=== PATIENT | male | born 1950 | race African-American/Black ===

== ENCOUNTER 2017-01-13 11:58 | Outpatient (CLI) | payer MEDICARE ==
--- OUTSIDE RECORDS SUMMARY | 2017-01-13 12:01 | XMS | Clinical Summary ---
:1950 Author Organization [facility] Address [address] [place] [address] Phone Care Team Providers Name Role Phone , Primary Care Provider Unavailable Allergies Not on File Current Medications Not on file Active Problems Not on file Social History Tobacco Use Types Packs/Day Years Used Date Never Assessed Sex Assigned at Date Recorded Not on file Last Filed Vital Signs Not on file Plan of Treatment Not on file Results Not on filefrom Last 3 Months
--- NOTE | 2017-01-13 14:21 | CT ---
CT STONE PROTOCOL: Date: 01/13/17 HISTORY: Abdominal pain. FINDINGS: Comparison made to the contrast enhanced study of 01/27/16. Absence of oral and IV contrast reduces the sensitivity of exam, particularly for evaluation of elisabeth d organs and bowel. There is a 15.0 mm nodule at the right lung base, new since the last study. No free air or free flui d is seen in the abdomen or pelvis. Changes of cholecystectomy are again noted. Changes of cirrhosis of the liver, splenomegaly, mesenteric and retroperitoneal lymphadenopathy, ext ra and intrahepatic biliary ductal dilatation, and umbilical hernia are again noted. No calculi are seen in the kidneys, ureters, or the urinary bladder. No hydroureteronephrosis is not ed on either side. The prostate is enlarged. There is fecal material in the colon. A normal appearing appendix is present. The small bowel loops are not abnormally dilated. There are vascular calcifications without evidence of aneurysmal dilatat ion of the abdominal aorta. There are degenerative changes in the spine. IMPRESSION: 1. No CT evidence of urinary tract calculi or obstruction. 2. Cirrhosis of the liver. 3. Splenomegaly. 4. Abdominal lymphadenopathy. 5. Status post cholecystectomy with stable intra and extrahepatic biliary ductal dilatation. 6. Umbilical hernia. 7. Prostatic enlargement. 8. New right basilar 15.0 mm lung nodule. A dedicated CT scan of the chest is recommended after a c ourse of antibiotics. POS: RIP
== END 2017-01-13 11:59 | disposition home or self-care (01) ==
LOC: ULT 11:58
PROVIDERS: ATTEND Internal Medicine
DX: B19.20 Unspecified viral hepatitis C without hepatic coma (principal); I08.3 Combined rheumatic disorders of mitral, aortic and tricuspid valves; K74.60 Unspecified cirrhosis of liver; R16.1 Splenomegaly, not elsewhere classified; R59.0 Localized enlarged lymph nodes; K42.9 Umbilical hernia without obstruction or gangrene; N40.0 Benign prostatic hyperplasia without lower urinary tract symptoms; R91.1 Solitary pulmonary nodule; K83.8 Other specified diseases of biliary tract; Z90.49 Acquired absence of other specified parts of digestive tract
CPT/HCPCS: 74176; 93306

== ENCOUNTER 2017-03-11 12:47 | Outpatient (CLI) | payer MEDICARE, MEDICAID ==
--- NOTE | 2017-03-11 14:47 | MRI ---
MRI CERVICAL SPINE PERFORMED WITHOUT CONTRAST ENHANCEMENT: Comparison: 02-19-13 History: Neck pain x several months with bilateral shoulder pain. The vertebral bodies are normal in height. There is moderate disc space narrowing with C3-4, C4-5, an d C6-7 levels. There is some cord signal change in the cervicothoracic cord region. It is more diffic ult to visualize on the previous MRI examination due to motion artifact but appears to have been pres ent at that time. C2-3: Uncal vertebral and facet hypertrophic changes at this level cause some mild right sided forami nal narrowing, similar to the prior study. C3-4: Broad based posterior osteophytic bar at this level with some asymmetric right uncal vertebral and hypertrophic changes are seen. This is causing a moderate degree of canal stenosis and moderate b ilateral foraminal narrowing which is worse on the right. C4-5: Posterior disc osteophyte complex also present at this level with a mild to moderate degree of canal stenosis and moderate bilateral foraminal narrowing. There is flattening to the cord. C5-6: Asymmetric right uncal vertebral changes are present at this level with moderate right sided fo raminal narrowing, there is also impression along the right side of the cord at this level. C6-7: Posterior osteophyte change is also present at this level. There is some mild right sided forrest inal stenosis. C7-T1: Some borderline left sided foraminal narrowing at this level. IMPRESSION: Multilevel canal and foraminal stenosis. Findings appear fairly similar to the previous exam. Signal change within the cord at the cervicothoracic junction region also appears stable. POS: RIP
== END 2017-03-11 12:48 | disposition home or self-care (01) ==
LOC: SCSMRI 12:47
PROVIDERS: ATTEND Anesthesiology Pain Medicine
DX: M47.812 Spondylosis without myelopathy or radiculopathy, cervical region (principal); M48.02 Spinal stenosis, cervical region
CPT/HCPCS: 72141

== ENCOUNTER 2018-02-08 12:32 | Emergency (ER) | payer MEDICARE, MEDICAID, OTHER ==
[2018-02-08 13:03] LABS: #Lymphocytes 0.9 thou/uL (1.20-3.40); #Monocytes 0.5 thou/uL (0.11-0.59); %Basophils 0.3 % (0.0-1.0); %Eosinophils 0.3 % (0.0-10.0); %Lymphocytes 14.3 % (21.0-51.0); %Monocytes 7.3 % (0.0-10.0); %Neutrophils 77.8 % (42.0-75.0); Hemoglobin 14.5 g/dL (14.0-18.0); Mean Corpuscular Volume 87.9 fL (78.0-98.0); Mean Platelet Volume 8.2 fL (7.4-10.4); Platelet Count 114 thou/uL (130-400); RBC Distribution Width 13.5 % (11.5-14.5); Red Blood Cell (RBC) Count 5.01 mill/uL (4.70-6.10); White Blood Cell (WBC) Count 6.4 thou/uL (4.8-10.8)
[2018-02-08 13:20] LABS: ALT (SGPT) 30 U/L (8-55); AST (SGOT) 34 U/L (5-34); Albumin 4.3 g/dL (3.4-4.8); Alkaline Phosphatase 94 U/L (40-150); Anion Gap 12 mmol/L (10-20); BUN (Urea Nitrogen) 15 mg/dL (8.4-25.7); Bilirubin, Total 1.1 mg/dL (0.2-1.2); Calc. Creatinine Clearance 0 mL/min (70-130); Carbon Dioxide 25 mmol/L (23-31); Chloride 102 mmol/L (98-107); Estimated GFR-MDRD 75; Globulin 3.6 g/dL (2.4-3.5); Glucose 112 mg/dL (80-115); Potassium 4.1 mmol/L (3.5-5.1); Protein, Total 7.9 g/dL (5.8-8.1); Sodium 135 mmol/L (136-145)
[2018-02-08] MEDS ORDERED: Ondansetron PF 4 MG/2 ML Vial ONE (13:33)
[2018-02-08] MEDS ORDERED: Morphine 4 MG/ML VIAL ONE (13:33)
[2018-02-08 13:36] LABS: Bilirubin Negative (Negative); Blood, Urine Negative (Negative); Clarity CLEAR (Clear); Glucose, Urine (Dipstick) Negative (Negative); Leukocyte Negative (Negative); Nitrite Negative (Negative); Protein, Urine (Dipstick) Negative (Neg-Trace)
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
[2018-02-08 14:22] LABS: Specific Gravity, Urine 1.018 (1.002-1.036)
[2018-02-08 14:23] LABS: pH, Urine 5.5 (5.0-9.0)
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
--- NOTE | 2018-02-11 23:07 | EKG ---
Test Reason : TRAUMA 2 Blood Pressure : / mmHG Vent. Rate : 053 BPM Atrial Rate : 053 BPM P-R Int : 158 ms QRS Dur : 096 ms QT Int : 450 ms P-R-T Axes : -10 023 016 degrees QTc Int : 422 ms Sinus bradycardia Minimal voltage criteria for LVH, may be normal variant ST elevation, consider early repolarization Borderline ECG Confirmed by ANIKA HUGGINS ([id number]), editor managing newspaper JOSE HOPKINS ([id number]) on 02/11/2018 11:07:21 PM Referred By: Confirmed By:ANIKA HUGGINS
== END 2018-02-08 15:09 | disposition home or self-care (01) ==
LOC: ERS 12:32
DX: S13.9XXA Sprain of joints and ligaments of unspecified parts of neck, initial encounter (principal); S23.3XXA Sprain of ligaments of thoracic spine, initial encounter; R91.1 Solitary pulmonary nodule; D64.9 Anemia, unspecified; I10 Essential (primary) hypertension; Z87.891 Personal history of nicotine dependence; V43.92XA Unspecified car occupant injured in collision with other type car in traffic accident, initial encounter
CPT/HCPCS: 36415; 70450; 71045; 71260; 72125; 74177; 80053; 81003; 85025; 93005; 94760; 96361; 96374; 96375; J2270; J2405

== ENCOUNTER 2018-11-24 07:31 | Day surgery (SDC) | payer MEDICARE, MEDICAID ==
[2018-11-23 15:16] VITALS: BMI 30.8
--- NOTE | 2018-11-24 08:44 | HP ---
HISTORY OF PRESENT ILLNESS: This is a 68-year-old male with chronic hepatitis C, liver cirrhosis. The patient taken medical treatment, and the Hepatitis C RNA became negative. The patient has had episode of massive upper GI bleeding, I think 4 or 5 years ago. He underwent EGD and was found to have _ the lesion over the proximal stomach. He also was transferred to [facility] at that time for further management. Does see a regulatory compliance engineer from [place] on a regular basis. He does have chronic liver disease and was advised to have EGD to see if he has any esophageal varices. ALLERGIES: 1. MORPHINE CONTENT. 2. PENICILLIN. SOCIAL HISTORY: former smoker, no alcohol intake MEDICAL ILLNESSES: Hypertension, chronic hepatitis C, glaucoma, blindness right eye PHYSICAL EXAMINATION: VITAL SIGNS: Pulse is 70 Blood pressure 130/80. CARDIOVASCULAR: First and second heart sounds normal. LUNGS: Clear to auscultation. ABDOMEN: Soft to palpate. No organomegaly. No tenderness. Bowel sounds are normal. ADMITTING DIAGNOSIS: A 68-year-old male with chronic hepatitis C, liver cirrhosis, etc. The patient is undergoing EGD because of liver cirrhosis and possible esophageal varices. Job ID: [id number] [facility]
--- NOTE | 2018-11-24 12:24 | OP ---
DATE OF PROCEDURE: 11/24/2018 PREOPERATIVE DIAGNOSES: A 68-year-old male with liver cirrhosis, chronic hepatitis C. Had an episode of massive GI bleeding about four years ago , underwent EGD and was found to have polypoid lesion over the proximal stomach bleeding. He had a hemoclip placement. He has done well over the last 4 years. The patient does see Hepatology in [place] and was advised to have an EGD done. OPERATIVE PROCEDURE: Esophagogastroduodenoscopy. POSTOPERATIVE DIAGNOSES: 1. Chronic large hypervascular polypoid lesion measuring approximately 3 cm over the proximal stomach on the greater curvature. 2. No gastric varices or esophagitis seen. 3. Antral gastritis. DESCRIPTION OF PROCEDURE: The patient was placed on his left lateral position and was given sedation by Anesthesia Department. A [employer]ax videogastroscope under direct vision passed down the oropharynx, past the GE junction into the stomach and subsequently into the descending duodenum. The esophageal mucosa appeared normal. No esophagitis was seen. In the GE junction, no lesion. The fundus and cardia , no gastric varices seen. The patient had a 3 cm size large polypoid lesion, appears very vascular and oozing small amount of blood. Because of the above reason, no biopsies were taken.The remainder of the_ gastric body, no pathology seen. The gastric antrum shows mild gastritis. The duodenal bulb and descending duodenum, no pathology. The stomach decompressed and the scope removed. DISCHARGE PLANNING: This is a 68-year-old male, came for EGD because of his liver cirrhosis. The EGD showed a very large polypoid lesion over the proximal stomach. It appeared very vascular with mild oozing without touching it . The patient did well postprocedure and is being discharged home. He will otherwise come back to me in 2 weeks for a followup. DISCHARGE RECOMMENDATIONS: 1. Continue medicine as before. 2. Will see his electrical design engineer in [place] in the next few months. The patient was given a copy of the pictures that were taken with him when he goes to [place]. Job ID: [id number] [facility]
== END 2018-11-24 11:09 | disposition home or self-care (01) ==
LOC: SDC 07:31
PROVIDERS: ATTEND Internal Medicine Gastroenterology
PROC: 0DJ08ZZ Inspection of Upper Intestinal Tract, Via Natural or Artificial Opening Endoscopic (ICD-10-PCS; principal; 2018-11-24)
DX: K74.60 Unspecified cirrhosis of liver (principal); B18.2 Chronic viral hepatitis C; K29.70 Gastritis, unspecified, without bleeding; K31.89 Other diseases of stomach and duodenum; I10 Essential (primary) hypertension; H54.61 Unqualified visual loss, right eye, normal vision left eye; Z87.891 Personal history of nicotine dependence; Z88.0 Allergy status to penicillin; Z88.5 Allergy status to narcotic agent

== ENCOUNTER 2019-04-30 09:02 | Outpatient (CLI) | payer MEDICARE, MEDICAID ==
--- NOTE | 2019-04-30 11:07 | MRI ---
MRI LUMBAR SPINE NONCONTRAST: Date: 04/30/2019 HISTORY: Low back pain. Right leg radiculopathy. FINDINGS: On prior radiographs of the lumbar spine and chest, there is apparently only four lumbar-type vertebr ae. For the purposes of this exam, however, the lowest lumbar-type vertebra will be designated as L5, with the remainder numbered accordingly. There is desiccation of all of the intervertebral discs. Co nus medullaris has a normal appearance. At the partially visualized lower thoracic spine, an extradural lesion at the right posterior aspect of the central spinal canal at the T11-12 level has the appearance of a prominent osteophyte from the facet. Less prominent osteophyte on the left. Some effacement of the thecal sac. T12-L1: Osteophytosis. Central canal and neural foramina are patent. L1-2: Osteophytosis. Central canal and neural foramina are patent. L2-3: Osteophytosis of the facets. Central canal and neural foramina are patent. L3-4: Mild disc space narrowing and posterior disc bulge. Circumferential degenerative changes. Mode rate stenosis of the central canal. Moderate bilateral foraminal stenoses. L4-5: Mild posterior disc bulge. Circumferential degenerative changes. Mild stenosis of the central canal. Mild to moderate right and moderate to severe left foraminal stenoses. L5-S1: Disc space narrowing. Mild posterior disc bulge. Thecal sac is patent. Moderate to severe merary ateral foraminal stenoses. IMPRESSION: 1. Prominent multilevel degenerative changes of the lumbar spine as detailed above. Significant bila teral foraminal stenoses, greater in general on the left than the right. 2. There are also degenerative changes of partially visualized lower thoracic spine, including promi nent facet hypertrophy at the T11-12 level. POS: [facility]
== END 2019-04-30 09:03 | disposition home or self-care (01) ==
LOC: SCSMRI 09:02
PROVIDERS: ATTEND Internal Medicine
DX: M62.830 Muscle spasm of back (principal); M47.816 Spondylosis without myelopathy or radiculopathy, lumbar region; M48.061 Spinal stenosis, lumbar region without neurogenic claudication; M47.814 Spondylosis without myelopathy or radiculopathy, thoracic region
CPT/HCPCS: 72148

== ENCOUNTER 2020-03-31 14:01 | Outpatient (CLI) | payer MEDICARE, MEDICAID ==
--- NOTE | 2020-03-31 15:15 | MRI ---
MRI of thecervical spine without contrast: 03/31/2020 COMPARISON:03/11/2017 HISTORY:Neck pain with cervical radiculopathy, right upper extremity radiculopathy TECHNIQUE: Multiplanar multisequence MR imaging of thecervical spine without contrast Findings:Stable prominent degenerative change at the atlantoaxial interspace. Sagittal STIR imaging demonstrates no focal area of osseous marrow edema. C2-3: Disc space narrowing with mild disc bulge. No central canal stenosis. Bilateral facet and uncov ertebral osteophyte formation, right greater than left, with moderate right and mild left neural foraminal stenosis. C3-4: Disc space and with disc desiccation, anterior osteophyte formation, and mild disc bulge with p artial effacement of the ventral thecal sac and mild central canal stenosis. Bilateral facet and uncovertebral osteophyte formation with moderate right and mild left neural foraminal stenosis. C4-5: Disc space narrowing with disc desiccation, mild disc bulge, and anterior osteophyte formation. Mild central canal stenosis and bilateral neural foraminal stenosis with mild bilateral facet hypertrophy. C5-6: Disc space narrowing with disc desiccation, anterior osteophyte formation, and a right paracent ral/right foraminal disc protrusion with associated uncovertebral osteophyte formation. Mild central canal stenosis, mild left neural foraminal stenosis, and moderate right neural foraminal sten osis. C6-7: There is disc space narrowing with disc desiccation, anterior osteophyte formation, and mild di sc bulge. Mild central canal stenosis. Bilateral facet and uncovertebral osteophyte formation with mild bilateral neural foraminal stenosis, right greater than left. C7-T1: Bilateral facet hypertrophy present with moderate left and mild right neural foraminal stenosi s. No significant central canal stenosis. No focal abnormal cervical cord signal. IMPRESSION:Multilevel cervical spine degenerative change as detailed above.
== END 2020-03-31 14:02 | disposition home or self-care (01) ==
LOC: BICMRI 14:01
PROVIDERS: ATTEND Pain Medicine Pain Medicine
DX: M47.22 Other spondylosis with radiculopathy, cervical region (principal)
CPT/HCPCS: 72141